=== PATIENT | male | born 1960 | race Hispanic/Latino ===

== ENCOUNTER 2020-03-29 09:33 | Emergency (ER) | payer OTHER ==
[2020-03-29 10:28] LABS: Absolute Lymphocytes (CBC) 0.4 K/uL (0.7-4.9); Basophils % 0.2 % (0-1.3); Hematocrit 42.2 % (39.6-49.0); Lymphocytes % 8.4 % (15.3-44.8); MPV 9.8 fL (7.6-11.3); RBC Red Blood Cell Count 4.59 M/uL (4.33-5.43)
[2020-03-29 10:32] LABS: Protime INR 1.06
[2020-03-29] MEDS ORDERED: ONDANSETRON 4 MG (ODT) TAB ONE (10:32)
--- OUTSIDE RECORDS SUMMARY | 2020-03-29 10:42 | XMS REPORT | Clinical Summary ---
:1960 Author Organization [facility] Address [address] [place] [address] Care Team Providers Name Role Phone Ricardo Corea MD Primary Care Provider [phone] Allergies No Known Allergies Medications Medication Sig Dispensed Refills Start Date End Date Status lisinopril Take 20 mg by 0 Activ e (PRINIVIL,ZESTRIL) 20 mouth every mg tablet morning. 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
--- OUTSIDE RECORDS SUMMARY | 2020-03-29 10:42 | XMS REPORT | Clinical Summary ---
:1960 Author Organization [facility] Address [address] [place] [address] Care Team Providers Name Role Phone Parvez Adler MD Primary Care Provider Unavailable Allergies No Known Allergies Medications Medication Sig Dispensed Refills Start Date End Date Status lisinopril Take 20 mg by 0 Activ e (PRINIVIL,ZESTRIL) 20 mouth daily. MG tablet Active Problems Problem Noted Date Rectal cancer 06/20/2018 Social History Tobacco Use Types Packs/Day Years Used Date Never Smoker Smokeless Tobacco: Never Used Alcohol Use Drinks/Week oz/Week Comments Yes rare Sex Assigned at Date Recorded Not on file Job Start Date Occupation Industry Not on file Not on file Not on file Travel History Travel Start Travel End No recent travel history available. Last Filed Vital Signs Not on file Plan of Treatment Not on file Results Not on fileafter 03/29/2019 Insurance Payer Benefit Plan / Group Subscriber ID Type Phone A ddress AETNA - MGD CARE AETNA HMO POS QPOS xxxxxxxxxx HMO/POS Advance Directives For more information, please contact:[address] [phone] Code Status Date Activated Date Inactivated Comments Full Code 06/20/2018 4:22 PM 06/22/2018 8:09 PM This code status was determined by: Patient
--- OUTSIDE RECORDS SUMMARY | 2020-03-29 10:43 | XMS REPORT | Continuity of Care Document ---
:1960 Author Organization [facility] t Address [address] [place] [address] Care Team Providers Name Role Phone Donell Adler MD Primary Care Physician Unavailable Anmol LARIOS Attending Clinician Donell Adler MD Attending Clinician Doctor Unassigned, Name Attending Clinician Unavailable Masha Alejandre Attending Clinician [phone] DONELL ADLER Attending Clinician Unavailable DONELL ADLER Admitting Clinician Unavailable Payers Payer Name Policy Type Policy Number Effective Date Expiration Date S everardo BCBSANTHEM BLUE xxxxxxxxxxxx 2018 [place] CROSSxxxxxxxxxxx 00:00:00 Methodis t 2018-Presen tPPO AETNAAETNA PPO xxxxxxxxxx 2007 [place] OPEN 00:00:00 [facility] CHOICExxxxxxxxxx 2007-Present PPO Problems Condition Condition Condition Status Onset Resolution Last Treating Co mments Source Name Details Category Date Date Treatment Clinician Date F[facility] Syncope Syncope Disease Active [place] 12-14 [facility] 00:[facility]: st 00 Essential Essential Disease Active [facility] hypertensi hypertensi 3-20 [facility]odi on on 00:00: st 00 Rectal Rectal Disease Active [facility] [address] [place] [address] Rectal Rectal Disease Active [place] [facility] 1- [facility] 00:00: st 00 Allergies, Adverse Reactions, Alerts This patient has no known allergies or adverse reactions. Family History Family Member Diagnosis Comments Start Date Stop Date Source Natural father Stroke [facility] Natural mother Alzheimer's disease [place] [facility] Natural sister Arthritis [facility] Natural sister Hypertension [facility] Social History Social Habit Start Date Stop Date Quantity Comments Source Sex Assigned At [facility] Alcohol intake 2019-05-16 2019-05-16 Current [facility] 00:00:00 00:00:00 non-drinker of alcohol (finding) Alcohol Comment 2018-06-09 2018-06-09 rare [facility] Smoking Status Start Date Stop Date Source Never smoker [facility] Medications Ordered Filled Start Stop Current Ordering Indication Dosage Frequency Signature Comments Components Source Medication Medication Date Date Medication? Clinician (SIG) Name Name lisinopril Yes 20mg QD Take 20 mg [place] (PRINIVIL,Z 3-21 by mouth Meth yvon ESTRIL) 20 17:55: every st mg tablet 08 morning. lisinopril Yes 20mg QD Take [address] (PRINIVIL,Z 9-13 by mouth [facility] - ESTRIL) 20 14:21: daily. Medic al MG tablet Center Vital Signs Vital Name Observation Time Observation Value Comments Source Systolic blood 2019-07-18 08:16:00 137 mm[Hg] [place] [facility] pressure Diastolic blood 2019-07-18 08:16:00 85 mm[Hg] [place] [facility] pressure Heart rate 2019-07-18 08:16:00 84 /min [place] [facility] Body temperature 2019-07-18 08:16:00 36.72 Lisa [place] [facility] Procedures This patient has no known procedures. Plan of Care Planned Activity Planned Date Details Comments Source Future Scheduled 2020-04-27 INFLUENZA VACCINE Gabriel stafford [facility] Test 00:00:00 [code = INFLUENZA VACCINE] Future Scheduled 2008 COLONOSCOPY SCREENING Javier palmaradha [facility] Test 00:00:00 [code = COLONOSCOPY SCREENING] Future Scheduled 2008 SHINGLES VACCINES [place] [facility] 00:00:00 (#1) [code = SHINGLES VACCINES (#1)] Encounters Start End Encounter Admission Attending Care Care Encounter Source Date/Time Date/Time Type Type Clinicians Facility Department ID 2020-02-16 2020-02-16 Refrachael Corea NVTJ [id number] 00:00:00 00:00:00 [facility] [id number] [place] [id number] Professio [phone] nal [address] One 2019-11-22 2019-11-22 Refill Anmol NVTJ [id number] 00:00:00 00:00:00 [facility] [id number] [place] [id number] Professio [phone] nal 044 Office [address] One 2019-06-07 2019-06-07 Orders Doctor DEBBIE [id number] 00:00:00 00:00:00 Only Unassigned, KJ [id number] [facility] [phone] [id number] 2019-05-25 2019-05-25 Office SYBIL Corea [id number] 13:45:21 14:08:51 Visit [facility] [id number] [place] [id number] Professio [phone] nal [facility] Office [facility] One Results Test Description Test Time Test Comments Results Result Comments Source BASIC METABOLIC PANEL 2018-06-22 05:08:00 Test Item Value Reference Range Interpretation Comme nts SODIUM (BEAKER) (test code 137 meq/L 136-145 = 381) POTASSIUM (BEAKER) (test 3.8 meq/L 3.5-5.1 code = 379) CHLORIDE (BEAKER) (test 103 meq/L 98-107 code = 382) CO2 (BEAKER) (test code = 27 meq/L 22-29 355) BLOOD UREA NITROGEN 10 mg/dL 7-21 (BEAKER) (test code = 354) CREATININE (BEAKER) (test 0.75 mg/dL 0.57-1.25 code = 358) GLUCOSE RANDOM (BEAKER) 119 mg/dL 70-105 H (test code = 652) CALCIUM (BEAKER) (test 8.7 mg/dL 8.4-10.2 code = 697) EGFR (BEAKER) (test code = 107 mL/min/1.73 sq m ESTIMATED GFR IS NOT 1092) ACCURATE CRE ATININE CLEARANCE IN CT EDICTING GLOMERULAR FILT RATION RATE. ESTIMATED GFR IS NOT APPLICABLE FOR DIALYSIS PATIENTS. CBC (HEMOGRAM ONLY)2018-06-22 04:41:00 Test Item Value Reference Range Interpretation Comments WHITE BLOOD CELL COUNT (BEAKER) 10.2 K/ L 3.5-10.5 (test code = 775) RED BLOOD CELL COUNT (BEAKER) 4.06 M/ L 4.63-6.08 L (test code = 761) HEMOGLOBIN (BEAKER) (test code = 14.0 GM/DL 13.7-17.5 410) HEMATOCRIT (BEAKER) (test code = 42.7 % 40.1-51.0 411) MEAN CORPUSCULAR VOLUME (BEAKER) 105.2 fL 79.0-92.2 H (test code = 753) MEAN CORPUSCULAR HEMOGLOBIN 34.5 pg 25.7-32.2 H (BEAKER) (test code = 751) MEAN CORPUSCULAR HEMOGLOBIN CONC 32.8 GM/DL 32.3-36.5 (BEAKER) (test code = 752) RED CELL DISTRIBUTION WIDTH 13.6 % 11.6-14.4 (BEAKER) (test code = 412) PLATELET COUNT (BEAKER) (test 157 K/CU MM 150-450 code = 756) MEAN PLATELET VOLUME (BEAKER) 10.7 fL 9.4-12.4 (test code = 754) NUCLEATED RED BLOOD CELLS 0 /100 WBC 0-0 (BEAKER) (test code = 413) TISSUE [id number] 14:56:00Surgical Pathology Report Case: [id number] Authorizing Provider: Parvez Adler MD Collected: 06/20/2018 1253 Ordering Location: [facility] Received: 06/20/2018 1334 SERVICES Pathologist: Janny Mahan MD Specimen: Ileostomy ILEOSTOMY, RESECTION; - SMALL BOWEL WALL WITH FOCAL SURFACE EROSION AND CHRONIC INFLAMMATION - NO MALIGNANCY IDENTIFIED Signing Pathologist Direct Phone Line: [phone] signed by Janny Mahan MD on 06/21/2018 at 2:56 [id number] of rectal cancerIleostomy Received fresh labeled with the patient's information and "ileostomy" is a 7.5 cm in length x 2.0 cm in diameter segment of small bowel with a ring of pale oropeza skin surrounding an opening in the center of the segment consistent with an ileostomy stoma. The serosal surface is purple-oropeza to red, dusky, focally ragged and exhibits fibrous adhesions. The specimen is opened to reveal [id number] unremarkable mucosa. No discrete masses are identified. Practical Nursing Faculty sections are submitted in cassettes A1-A2. DB/plPerformed.BASIC METABOLIC [id number] 07:00:00 Test Item Value Reference Range Interpretation Comments SODIUM (BEAKER) 134 meq/L 136-145 L (test code = 381) POTASSIUM (BEAKER) 3.7 meq/L 3.5-5.1 (test code = 379) CHLORIDE (BEAKER) 104 meq/L 98-107 (test code = 382) CO2 (BEAKER) (test 23 meq/L 22-29 code = 355) BLOOD UREA NITROGEN 10 mg/dL 7-21 (BEAKER) (test code = 354) CREATININE (BEAKER) 0.75 mg/dL 0.57-1.25 (test code = 358) GLUCOSE RANDOM 120 mg/dL 70-105 H (BEAKER) (test code = 652) CALCIUM (BEAKER) 8.8 mg/dL 8.4-10.2 (test code = 697) EGFR (BEAKER) (test 107 mL/min/1.73 ESTIM ATED GFR IS code = 1092) sq m NOT ACCURATE CREATININE CLEARANCE IN PREDICTING GLOMERULAR FILTRATION RATE . ESTIMATED GFR I S NOT APPLICABLE FOR DIALYSIS PATIEN TS. CBC (HEMOGRAM ONLY)2018-06-21 05:46:00 Test Item Value Reference Range Interpretation Comments WHITE BLOOD CELL COUNT (BEAKER) 11.8 K/ L 3.5-10.5 H (test code = 775) RED BLOOD CELL COUNT (BEAKER) 4.18 M/ L 4.63-6.08 L (test code = 761) HEMOGLOBIN (BEAKER) (test code = 14.4 GM/DL 13.7-17.5 410) HEMATOCRIT (BEAKER) (test code = 43.6 % 40.1-51.0 411) MEAN CORPUSCULAR VOLUME (BEAKER) 104.3 fL 79.0-92.2 H (test code = 753) MEAN CORPUSCULAR HEMOGLOBIN 34.4 pg 25.7-32.2 H (BEAKER) (test code = 751) MEAN CORPUSCULAR HEMOGLOBIN CONC 33.0 GM/DL 32.3-36.5 (BEAKER) (test code = 752) RED CELL DISTRIBUTION WIDTH 13.7 % 11.6-14.4 (BEAKER) (test code = 412) PLATELET COUNT (BEAKER) (test 155 K/CU MM 150-450 code = 756) MEAN PLATELET VOLUME (BEAKER) 10.4 fL 9.4-12.4 (test code = 754) NUCLEATED RED BLOOD CELLS 0 /100 WBC 0-0 (BEAKER) (test code = 413) [id number] 16:36:00 Test Item Value Reference Range Interpretation Comments SODIUM (BEAKER) (test code = 381) 142 meq/L 136-145 POTASSIUM (BEAKER) (test code = 3.8 meq/L 3.5-5.1 379) CHLORIDE (BEAKER) (test code = 382) 106 meq/L 98-107 CO2 (BEAKER) (test code = 355) 26 meq/L 22-29 BUN AND [id number] 16:36:00 Test Item Value Reference Range Interpretation Comments BLOOD UREA NITROGEN 9 mg/dL 7-21 (BEAKER) (test code = 354) CREATININE (BEAKER) 0.80 mg/dL 0.57-1.25 (test code = 358) EGFR (BEAKER) (test 99 mL/min/1.73 ESTIMA NILESH GFR IS code = 1092) sq m NOT ACCURATE CREATININE CLEARANCE IN PREDICTING GLOMERULAR FILTRATION RATE . ESTIMATED GFR I S NOT APPLICABLE FOR DIALYSIS PATIEN TS. [id number] 16:12:00 Test Item Value Reference Range Interpretation Comments HEMOGLOBIN (BEAKER) (test code = 15.2 GM/DL 13.7-17.5 410)
[2020-03-29 11:00] LABS: ALT/SGPT 31 U/L (12-78); AST/SGOT 26 U/L (15-37); Albumin 3.2 g/dL (3.4-5.0); Alkaline Phosphatase 86 U/L (45-117); BUN Blood Urea Nitrogen 12 mg/dL (7-18); Bicarbonate 25 mmol/L (21-32); Bilirubin Direct 0.2 mg/dL (0-0.2); Bilirubin Total 0.6 mg/dL (0.2-1.0); Glucose Level 112 mg/dL (74-106); Lipase 103 U/L (73-393); Potassium 3.7 mmol/L (3.5-5.1); Protein, Total 7.2 g/dL (6.4-8.2); Sodium Level 138 mmol/L (136-145); Troponin (Emerg Dept Use Only) < 0.02 ng/mL (0.0-0.045)
--- NOTE | 2020-03-29 11:20 | RAD REPORT ---
EXAM DESCRIPTION: RAD - Chest Single View - 03/29/2020 10:12 am CLINICAL HISTORY: CONGESTION Chest pain. COMPARISON: Chest Pa And Lat (2 Views) dated 05/18/2017 FINDINGS: Portable technique limits examination quality. The lungs are grossly clear. The heart is normal in size. No displaced fractures. IMPRESSION: No acute intrathoracic process suspected.
--- NOTE | 2020-03-29 11:28 | EDPHYS ---
Physician Documentation [facility] Name: Diana Romero Age: 59 yrs Sex: Male : 1960 Arrival Date: 03/29/2020 Time: 09:35 Bed 6 Private MD: ED Physician Horace Lea HPI: 03/29 11:26 This 59 yrs old Male presents to ER via Ambulatory with complaints of ma2 Constipation, Fever. 11:26 Onset: The symptoms/episode began/occurred gradually, 2 day(s) ago. Associated signs ma2 and symptoms: Pertinent negatives: abdominal pain, arthralgias, backache, chills, cough. Severity of symptoms: At their worst the symptoms were very mild. The patient has not experienced similar symptoms in the past. Historical: - Allergies: 09:41 No Known Allergies; ss - PMHx: 09:41 Colon CA; ss - Immunization history:: Adult Immunizations up to date. - Social history:: Smoking status: Patient denies any tobacco usage or history of. Patient/guardian denies using alcohol, street drugs, The patient lives with family. - Family history:: not pertinent. ROS: 11:26 Constitutional: Negative for fever, chills, and weight loss. ma2 11:26 All other systems are negative. Exam: 11:26 Constitutional: This is a well developed, well nourished patient who is awake, alert, ma2 and in no acute distress. ENT: Nares patent. No nasal discharge, no septal abnormalities noted. Tympanic membranes are normal and external auditory canals are clear. Oropharynx with no redness, swelling, or masses, exudates, or evidence of obstruction, uvula midline. Mucous membranes moist. Neck: Trachea midline, no thyromegaly or masses palpated, and no cervical lymphadenopathy. Supple, full range of motion without nuchal rigidity, or vertebral point tenderness. No Meningismus. Chest/axilla: Normal chest wall appearance and motion. Nontender with no deformity. No lesions are appreciated. Cardiovascular: Regular rate and rhythm with a normal S1 and S2. No gallops, murmurs, or rubs. Normal PMI, no JVD. No pulse deficits. Respiratory: Lungs have equal breath sounds bilaterally, clear to auscultation and percussion. No rales, rhonchi or wheezes noted. No increased work of breathing, no retractions or nasal flaring. Abdomen/GI: Soft, non-tender, with normal bowel sounds. No distension or tympany. No guarding or rebound. No evidence of tenderness throughout. MS/ Extremity: Pulses equal, no cyanosis. Neurovascular intact. Full, normal range of motion. Neuro: Awake and alert, GCS 15, oriented to person, place, time, and situation. Cranial nerves II-XII grossly intact. Motor strength 5/5 in all extremities. Sensory grossly intact. Cerebellar exam normal. Normal gait. Vital Signs: 09:36 BP 119 / 98; Pulse 76; Resp 17; Temp 98.5; Pulse Ox 100% ; Pain 0/10; ss 10:30 BP 127 / 76; Pulse 66; Resp 20; Pulse Ox 98% on R/A; em 11:30 BP 114 / 74; Pulse 65; Resp 18; Pulse Ox 99% on R/A; em MDM: 09:42 Patient medically screened. [facility] 11:26 Differential diagnosis: viral Infection, URI, bronchitis. Data reviewed: vital signs, or2 nurses notes. Counseling: I had a detailed discussion with the patient and/or guardian regarding: the historical points, exam findings, and any diagnostic results supporting the discharge/admit diagnosis, the presence of at least one elevated blood pressure reading (>120/80) during this emergency department visit, the need for outpatient follow up. Response to treatment: the patient's symptoms have markedly improved after treatment. 03/29 09:54 Order name: BMP [facility] 03/29 09:54 Order name: C-Reactive Protein [facility] 03/29 09:54 Order name: CBC with Diff [facility] 03/29 09:54 Order name: COVID-19 [facility] 03/29 09:54 Order name: Flu; Complete Time: 11:11 [facility] 03/29 09:54 Order name: LFT's; Complete Time: 11:11 [facility] 03/29 09:54 Order name: Lipase; Complete Time: 11:11 [facility] 03/29 09:54 Order name: PT-INR; Complete Time: 11:11 [facility] 03/29 09:54 Order name: Ptt, Activated; Complete Time: 11:11 [facility] 03/29 09:54 Order name: Strep; Complete Time: 11:11 [facility] 03/29 09:54 Order name: Troponin (emerg Dept Use Only); Complete Time: 11:11 ma2 03/29 09:55 Order name: Basic Metabolic Panel; Complete Time: 11:11 EDME 03/29 09:55 Order name: C-Reactive Protein; Complete Time: 11:11 EDMS 03/29 09:54 Order name: CXR XRAY; Complete Time: 11:28 ma2 03/29 09:54 Order name: EKG; Complete Time: 09:56 ma2 03/29 09:54 Order name: Cardiac monitoring; Complete Time: 09:56 ma2 03/29 09:54 Order name: Document PUI#; Complete Time: 09:57 ma2 03/29 09:54 Order name: Droplet/Contact Precautions; Complete Time: 09:57 ma2 03/29 09:54 Order name: EKG - Nurse/Tech; Complete Time: 10:57 ma2 03/29 09:54 Order name: Notify Health Dept [id number]/ ; Complete Time: 09:56 ma2 03/29 09:54 Order name: O2 Per Protocol; Complete Time: 09:56 ma2 03/29 09:55 Order name: CBC with Automated Diff; Complete Time: 11:11 EDME 03/29 09:55 Order name: CORONAVIRUS EDME 03/29 10:56 Order name: Throat Culture [facility] 03/29 09:54 Order name: O2 Sat Monitoring; Complete Time: 09:56 ma2 Administered Medications: 10:25 Drug: Zofran (Ondansetron) 4 mg Route: IVP; Site: right antecubital; em 12:11 Follow up: Response: No adverse reaction; Marked relief of symptoms; Nausea is decreasedem 12:10 Drug: Magnesium Citrate Liquid 300 ml Route: PO; em 12:12 Follow up: Response: Medication administered at discharge. em Disposition: 03/29/20 11:28 Discharged to Home. Impression: Constipation, unspecified, Acute upper respiratory infection, unspecified. - Condition is Stable. - Discharge Instructions: Upper Respiratory Infection, Adult. - Prescriptions for Colace 100 mg Oral Tablet - take 1 tablet by ORAL route every 12 hours; 14 tablet. Zithromax Z- Kingsley 250 mg Oral Tablet - take 1 tablet by ORAL route once daily for 3 days; 3 tablet. Medrol (Kingsley) 4 mg Oral Tablets, Dose Pack - take 1 tablet by ORAL route as directed - follow package instructions; 1 packet. - Medication Reconciliation Form, Thank You Letter, Antibiotic Education, Prescription Opioid Use form. - Follow up: Private Physician; When: Tomorrow; Reason: Recheck today's complaints, Continuance of care. Signatures: Dispatcher [employer] Donato Crouch RN RN em Smirch, Shelby, RN RN Horace Lea MD MD ma2 Corrections: (The following items were deleted from the chart) 12:12 11:28 03/29/2020 11:28 Discharged to Home. Impression: Constipation, unspecified; Acute em upper respiratory infection, unspecified. Condition is Stable. Forms are Medication Reconciliation Form, Thank You Letter, Antibiotic Education, Prescription Opioid Use. Follow up: Private Physician; When: Tomorrow; Reason: Recheck today's complaints, Continuance of care. ma2
--- NOTE | 2020-03-29 11:28 | ER ---
Nurse's Notes [facility] Name: Diana Romero Age: 59 yrs Sex: Male : 1960 Arrival Date: 03/29/2020 Time: 09:35 Bed 6 Private MD: Diagnosis: Constipation, unspecified;Acute upper respiratory infection, unspecified Presentation: 03/29 09:36 Chief complaint: Patient states: constipation x 5 days. Intermittent fever x 1 week. ss is positive for Covid 19. Coronavirus screen: Surgical mask placed on patient. Patient moved to private room, placed in contact and droplet isolation with eye protection until further assessment. Patient denies a cough. Patient denies shortness of breath or difficulty breathing. Patient reports a measured and/or subjective temperature greater than 100.4F. Patient denies travel on a cruise ship or to a country the [facility] currently lists as an affected area. Patient reports contact with known and/or suspected case of COVID-19. Ebola Screen: Patient denies exposure to infectious person. Patient denies travel to an Ebola-affected area in the 21 days before illness onset. Initial Sepsis Screen: Does the patient meet any 2 criteria? No. Patient's initial sepsis screen is negative. Does the patient have a suspected source of infection? No. Patient's initial sepsis screen is negative. Risk Assessment: Do you want to hurt yourself or someone else? Patient reports no desire to harm self or others. Onset of symptoms was March 22, 2020. 09:36 Method Of Arrival: Ambulatory 09:36 Acuity: ROCIO 3 ss Historical: - Allergies: 09:41 No Known Allergies; ss - PMHx: 09:41 Colon CA; ss - Immunization history:: Adult Immunizations up to date. - Social history:: Smoking status: Patient denies any tobacco usage or history of. Patient/guardian denies using alcohol, street drugs, The patient lives with family. - Family history:: not pertinent. Screenin:59 Abuse screen: Denies threats or abuse. Nutritional screening: No deficits noted. em Tuberculosis screening: No symptoms or risk factors identified. Fall Risk None identified. Assessment: 09:45 General: Appears in no apparent distress. uncomfortable, ill, Behavior is calm, em cooperative, appropriate for age. Pain: Denies pain. Neuro: Level of Consciousness is awake, alert, obeys commands, Oriented to person, place, time, situation, Appropriate for age. Cardiovascular: Capillary refill < 3 seconds Patient's skin is warm and dry. Respiratory: Airway is patent Respiratory effort is even, unlabored, Respiratory pattern is regular, symmetrical. GI: Abdomen is flat, Bowel sounds present X 4 quads. Abd is soft and non tender X 4 quads. Reports constipation, nausea. Derm: Skin is intact, is healthy with good turgor, Skin is pink, warm \T\ dry. Musculoskeletal: Capillary refill < 3 seconds, Range of motion: intact in all extremities. 11:00 Reassessment: Patient appears in no apparent distress at this time. Patient and/or em family updated on plan of care and expected duration. Pain level reassessed. Patient is alert, oriented x 3, equal unlabored respirations, skin warm/dry/pink. 12:10 Reassessment: Patient appears in no apparent distress at this time. Patient and/or em family updated on plan of care and expected duration. Pain level reassessed. Patient is alert, oriented x 3, equal unlabored respirations, skin warm/dry/pink. Vital Signs: 09:36 BP 119 / 98; Pulse 76; Resp 17; Temp 98.5; Pulse Ox 100% ; Pain 0/10; ss 10:30 BP 127 / 76; Pulse 66; Resp 20; Pulse Ox 98% on R/A; em 11:30 BP 114 / 74; Pulse 65; Resp 18; Pulse Ox 99% on R/A; em ED Course: 09:35 Patient arrived in ED. ss 09:40 Triage completed. ss 09:41 Arm band placed on right wrist. ss 09:42 Horace Lea MD is Attending Physician. ma2 09:56 Donato Munguia, RN is Primary Nurse. em 09:59 Patient has correct armband on for positive identification. Allergy band placed. Call em light in reach. Side rails up X2. 10:12 CXR XRAY In Process Unspecified. EDMS 10:15 Initial lab(s) drawn, by me, sent to lab. Inserted saline lock: 20 gauge in right em antecubital area, using aseptic technique. Blood collected. 10:54 EKG done, by ED staff, reviewed by Horace Lea MD. dh3 12:08 No provider procedures requiring assistance completed. IV discontinued, intact, em bleeding controlled, No redness/swelling at site. Pressure dressing applied. Administered Medications: 10:25 Drug: Zofran (Ondansetron) 4 mg Route: IVP; Site: right antecubital; em 12:11 Follow up: Response: No adverse reaction; Marked relief of symptoms; Nausea is decreasedem 12:10 Drug: Magnesium Citrate Liquid 300 ml Route: PO; em 12:12 Follow up: Response: Medication administered at discharge. em Outcome: 11:28 Discharge ordered by MD. spencer 12:08 Discharged to home via wheelchair. em 12:08 Condition: good 12:08 Discharge instructions given to patient, Instructed on discharge instructions, follow up and referral plans. medication usage, Demonstrated understanding of instructions, follow-up care, medications, Prescriptions given X 3. 12:12 Patient left the ED. em Addendum: 04/02/2020 07:55 Addendum: COVID-19 Result: Positive result giiven to ED physician to notify pt. i w Physician: Artie Rowe MD Physician was able to contact pt and pt was notified of positive COVID-19 swab result. Physician answered pt questions. Signatures: Dispatcher [employer] Donato Crouch RN RN em Williams, Irene, RN RN iw Smirch, Shelby, RN RN ss Herrera, Deanna [facility] Horace Lea MD MD ma2
[2020-03-29] MEDS ORDERED: MAGNESIUM CITRATE 300 ML BOT ONE (12:08)
[2020-03-29 12:19] VITALS: TEMP 98.5
[2020-03-29 12:22] VITALS: BP 114/74; O2SAT 99
--- NOTE | 2020-03-30 08:57 | EKG ---
Test Date: 2020-03-29 Test Time: 10:54:03 [employer] Specialist: AISSATOU MEASUREMENT RESULTS: Intervals: Rate: 66 GA: 138 QRSD: 84 QT: 416 QTc: 436 [place]: P: 68 GA: 138 QRS: 9 T: 33 INTERPRETIVE STATEMENTS: Normal sinus rhythm Normal ECG No previous ECG available for comparison Electronically Signed On 03-30-20 08:55:22 CDT by Fer Sánchez
== END 2020-03-29 12:12 | disposition home or self-care (01) ==
LOC: ER 09:33
DX: U07.1 COVID-19 (principal); J06.9 Acute upper respiratory infection, unspecified; K59.00 Constipation, unspecified; Z85.038 Personal history of other malignant neoplasm of large intestine
CPT/HCPCS: 93005; 87070; 85025; 80048; 36415; 85610; 80076; 87081; 85730; 84484; 83690; 86140; 87804 ×2; 71045; 96374; 99284; U0001